=== PATIENT | female | born 1990 | race American Indian/Alaskan Native ===

== ENCOUNTER 2019-03-16 23:01 | Emergency (ER) | payer SELFPAY ==
[2019-03-17] MEDS ORDERED: TYLENOL PO ONE (03:50)
[2019-03-17] MEDS ORDERED: IBUPROFEN PO ONE (03:50)
--- NOTE | 2019-03-17 04:46 | Emergency Department Report ---
ED General Adult HPI - General Chief complaint: Headache Stated complaint: PAIN IN THE BACK OF HEAD Source: patient Mode of arrival: Ambulatory Limitations: No Limitations - History of Present Illness Initial comments: Patient is a 28-year-old female with a history of seizures who presents to the ED with complaint of acute onset persistent painful swollen posterior cervical lymph nodes with a headache for the last 5 days. Patient denies fall, traumatic injury, nausea, vomiting, change in vision, dizziness, sore throat, hearing loss, ear pain, chest pain or shortness of breath. Patient states that she has been taking [id number] medication with no relief. MD Complaint: neck pain; headache -: Sudden, days(s) (5) Location: head, neck Radiation: non-radiation Severity scale (0 -10): 4 Quality: aching, sharp Consistency: constant Improves with: none Worsens with: none Associated Symptoms: denies other symptoms, headaches, loss of appetite. denies: confusion, chest pain, diaphoresis, fever/chills, malaise, nausea/vomiting, rash, seizure, shortness of breath, weakness, other Treatments Prior to Arrival: none - Related Data Home Medications Medication Instructions Recorded Confirmed Last Taken levETIRAcetam [Keppra TAB] 250 mg PO QDAY 03/16/19 03/16/19 Unknown Previous Rx's Medication Instructions Recorded Last Taken Type Amoxicillin [Amoxicillin TAB] 875 mg PO Q12H #20 tablet 03/17/19 Unknown Rx Ibuprofen [Motrin] 800 mg PO Q8HR PRN #20 tablet 03/17/19 Unknown Rx Allergies Allergy/AdvReac Type Severity Reaction Status Date / Time No Known Allergies Allergy Verified 03/16/19 23:04 ED Review of Systems ROS: Stated complaint: PAIN IN THE BACK OF HEAD Other details as noted in HPI Constitutional: denies: chills, fever Eyes: denies: eye pain, eye discharge, vision change ENT: congestion. denies: ear pain, throat pain Respiratory: cough. denies: shortness of breath, wheezing Cardiovascular: denies: chest pain, palpitations Endocrine: no symptoms reported Gastrointestinal: denies: abdominal pain, nausea, vomiting, diarrhea, constipation, hematemesis, hematochezia Genitourinary: denies: urgency, dysuria, discharge Musculoskeletal: denies: back pain, joint swelling, arthralgia Skin: denies: rash, lesions Neurological: headache. denies: weakness, paresthesias Psychiatric: denies: anxiety, depression Hematological/Lymphatic: denies: easy bleeding, easy bruising ED Past Medical Hx - Past Medical History Hx Seizures: Yes Hx Asthma: Yes - Surgical History Past Surgical History?: No - Social History Smoking Status: Current Every Day Smoker - Medications Home Medications: Home Medications Medication Instructions Recorded Confirmed Last Taken Type levETIRAcetam [Keppra TAB] 250 mg PO QDAY 03/16/19 03/16/19 Unknown History Amoxicillin [Amoxicillin TAB] 875 mg PO Q12H #20 tablet 03/17/19 Unknown Rx Ibuprofen [Motrin] 800 mg PO Q8HR PRN #20 tablet 03/17/19 Unknown Rx ED Physical Exam - General Limitations: No Limitations General appearance: alert, in no apparent distress - Head Head exam: Present: atraumatic, normocephalic, normal inspection - Eye Eye exam: Present: normal appearance, PERRL, EOMI. Absent: scleral icterus, conjunctival injection, periorbital swelling, other Pupils: Present: normal accommodation. Absent: unequal - ENT ENT exam: Present: normal orophraynx, mucous membranes moist, TM's normal bilaterally, normal external ear exam, other (grossly congested nasal passages) - Neck Neck exam: Present: normal inspection, full ROM, lymphadenopathy (palpable tenderness of posterior cervical lymph nodes). Absent: meningismus - Respiratory Respiratory exam: Present: normal lung sounds bilaterally. Absent: respiratory distress, wheezes, chest wall tenderness, accessory muscle use, decreased breath sounds, other - Cardiovascular Cardiovascular Exam: Present: regular rate, normal rhythm, normal heart sounds. Absent: systolic murmur, diastolic murmur, rubs, gallop - GI/Abdominal GI/Abdominal exam: Present: soft, normal bowel sounds. Absent: distended, tenderness, guarding, rebound, organomegaly - Rectal Rectal exam: Present: deferred - Extremities Exam Extremities exam: Present: normal inspection, full ROM, normal capillary refill - Back Exam Back exam: Present: normal inspection, full ROM. Absent: tenderness, CVA tenderness (R), CVA tenderness (L) - Neurological Exam Neurological exam: Present: alert, oriented X3, CN II-XII intact, normal gait, reflexes normal - Psychiatric Psychiatric exam: Present: normal affect, normal mood - Skin Skin exam: Present: warm, dry, intact, normal color. Absent: rash ED Course Vital Signs 03/16/19 23:37 Temperature 99.2 F Pulse Rate 80 Respiratory 18 Rate Blood Pressure 140/79 O2 Sat by Pulse 99 Oximetry - Reevaluation(s) Reevaluation #1: 03/17/19 04:47 This is a 28-year-old female who presented to the ED with painful posterior cervical lymphadenopathy. In the ED, patient is alert and oriented 3 and is in no acute distress. Patient was treated for pain in the ED and on reevaluation, patient's pain is well controlled with medications. Patient discharged home on medications and advised follow-up with her primary care physician in 7-10 days for reevaluation or return to the ED immediately if symptoms get worse. ED Medical Decision Making - EKG Data When compared to previous EKG there are: no significant change - Medical Decision Making This is a 28-year-old female who presented to the ED with painful posterior cervical lymphadenopathy. In the ED, patient is alert and oriented 3 and is in no acute distress. Patient was treated for pain in the ED and on reevaluation, patient's pain is well controlled with medications. Patient discharged home on medications and advised follow-up with her primary care physician in 7-10 days for reevaluation or return to the ED immediately if symptoms get worse. - Differential Diagnosis acute URI; Lymphadenopathy; acute frontal sinusitis Critical care attestation.: If time is entered above; I have spent that time in minutes in the direct care of this critically ill patient, excluding procedure time. ED Disposition Clinical Impression: Acute upper respiratory infection, Lymphadenopathy of head and neck Disposition: DC- TO HOME OR SELFCARE Is pt being admited?: No Does the pt Need Aspirin: No Condition: Stable Instructions: Acute Headache (ED), Lymphadenopathy (ED), Upper Respiratory Infection (ED) Additional Instructions: Take medications with food, drink plenty of fluids and follow up with your primary care physician in 7-10 days for reevaluation. Return to the ED immediately if symptoms worsen. Prescriptions: Amoxicillin [Amoxicillin TAB] 875 mg PO Q12H #20 tablet Ibuprofen [Motrin] 800 mg PO Q8HR PRN #20 tablet PRN Reason: Pain , Severe (7-10) Referrals: PRIMARY CARE, [Primary Care Provider] - 3-5 Days Time of Disposition: 04:50 Print Language: OCCITAN
[2019-03-17 05:05] VITALS: BP 125/86
== END 2019-03-17 05:15 | disposition home or self-care (01) ==
LOC: ED 23:01
DX: J06.9 Acute upper respiratory infection, unspecified (principal); R59.1 Generalized enlarged lymph nodes; J45.909 Unspecified asthma, uncomplicated; F17.200 Nicotine dependence, unspecified, uncomplicated